=== PATIENT | female | born 1965 | race Caucasian/White ===

== ENCOUNTER 2020-04-10 22:16 | Emergency (ER) | payer BC, SELFPAY ==
--- NOTE | ~2020-04-10 | XR_ITS ---
EXAMINATION: XR chest 2V EXAM DATE: 04/10/2020 22:38 INDICATION: Left-sided chest pain radiating down left arm, symptoms 3 days. TECHNIQUE: Frontal and lateral projections of the chest obtained and reviewed. There is no prior teddy dy for comparison. FINDINGS: The lungs are clear. There are no pleural effusions. The cardiomediastinal silhouette is within normal limits. There is no pneumothorax suspected. The bones and soft tissues are unremarkab le. There are cholecystectomy clips. IMPRESSION: Unremarkable chest x-ray exam. Reviewed, dictated and finalized at location A. TRONIC ENGRAVER
--- NOTE | 2020-04-10 22:20 | ECG_ITS ---
Measurements Intervals [place] Rate: 94 P: 85 [place]: 160 QRS: 59 QRSD: 103 T: 62 QT: 346 QTc: 433 Interpretive Statements SINUS RHYTHM BORDERLINE ST ABNORMALITY- ANTEROLAT/INF LEADS BASELINE ARTIFACT- I, III, AVR, AVL, AVF BORDERLINE ECG Electronically Signed On 04-11-2020 7:38:20 RADIO PRESENTER by Regan Montalvo D.O.
[2020-04-10 22:21] VITALS: BP 148/101; PULSE 92; RESP 17; TEMP 36.7; O2SAT 100
[2020-04-10 22:43] LABS: Basophils Absolute Auto 0.1 K/mm3 (0.0-0.1); Basophils Percent Auto 0.6 % (0.2-1.2); Eosinophils Absolute Auto 0.1 K/mm3 (0-0.3); Eosinophils Percent Auto 1.3 % (0-4.4); Hematocrit 39.3 % (37.0-47.0); Hemoglobin 12.8 g/dL (12.0-15.0); Immature Granulocyte Absolute 0.03 K/mm3 (0.00-0.031); Immature Granulocyte Percent A 0.3 % (0-0.5); Lymphocytes Absolute Auto 3.65 K/mm3 (0.9-3.2); Lymphocytes Percent Auto 37.9 % (18.3-44.2); Mean Corpuscular HGB Conc 32.6 g/dl (32-36); Mean Corpuscular Hemoglobin 29.4 pg (26-34); Mean Corpuscular Volume 90.1 fl (80-100); Mean Platelet Volume 10.4 fl (7.4-10.4); Monocytes Absolute Auto 0.9 K/mm3 (0.1-0.6); Monocytes Percent Auto 8.9 % (2.6-8.5); Neutrophils Absolute Auto 4.9 K/mm3 (1.3-6.7); Platelet Count Result 273 k/mm3 (150-375); Red Blood Count 4.36 M/mm3 (4.2-5.4); Red Cell Distribution Width 12.3 % (11.5-14.5); White Blood Count 9.6 K/mm3 (4.5-10.0)
[2020-04-10 22:50] LABS: Prothrombin Time 13.9 Seconds (11.1-14.7)
[2020-04-10 22:51] LABS: Partial Thromboplastin Time 31.2 SECONDS (22.3-36.8)
[2020-04-10 22:52] LABS: Anion Gap 6 mmol/L (8-16); Blood Urea Nitrogen 20 mg/dL (7-17); Carbon Dioxide 25 mmol/L (22-30); Chloride 110 mmol/L (98-107); Estimated CRCL calculation 71 ml/min; Estimated Glomerular Filt Rate > 60; Glucose 93 mg/dL (65-105); Potassium 3.5 mmol/L (3.4-5.0); Sodium 141 mmol/L (137-145)
[2020-04-10 23:05] LABS: Troponin I < 0.012 ng/mL (0.000-0.034)
[2020-04-10 23:23] VITALS: BP 119/79; PULSE 81; RESP 18; O2SAT 99
[2020-04-10] MEDS: KETOROLAC 30 MG/ML VIAL (*BKC) IV PUSH (23:30)
[2020-04-10 23:35] LABS: D Dimer 0.28 ug/mL (<0.48)
[2020-04-11 00:17] VITALS: BP 121/68; PULSE 65; RESP 13; O2SAT 97
--- NOTE | 2020-04-11 00:36 | ED.CHESTPAIN ---
HPI - Chest Pain General Chief Complaint: Chest Pain Stated Complaint: chest pain Time Seen by Provider: 04/10/20 22:21 History of Present Illness HPI narrative: Patient is a healthy 54-year-old female who presents ER with chest pain. Left upper chest and in her left shoulder. Ongoing for last 3 days. Worse with physical movements of the arm. Also worsens with deep breath. No runny nose/sore throat/productive cough. No exertional chest pain or shortness of breath. No dizziness. No history of VA. Has not been taking pain medications and has not found alleviating factors. Related Data Allergies Allergy/AdvReac Type Severity Reaction Status Date / Time No Known Allergies Allergy Mild Verified 07/21/09 12:06 Review of Systems Review of Systems: All systems reviewed & are unremarkable except as noted in HPI and below Constitutional: Constitutional: Denies chills, Denies fever(s) and Denies weakness ENT: Denies nasal congestion and Denies sore throat Cardiovascular: Cardiovascular: Reports chest pain, Denies rapid heart rate and Denies radiating jaw, neck or arm pain Respiratory: Respiratory: Denies cough, Denies dyspnea and Denies wheezing Gastrointestinal: Gastrointestinal: Denies abdominal pain, Denies nausea and Denies vomiting Musculoskeletal: Musculoskeletal: Reports back pain, Reports myalgias and Denies muscle cramps PMFSH Past Medical History Medical History (Updated 04/11/20 @ 00:40 by Waldo Orr MD) Back pain with history of spinal surgery Healthy female adult Surgical History Surgical History (Updated 04/11/20 @ 00:38 by Waldo Orr MD) History of cholecystectomy History of hysterectomy History of neck surgery Social History Social History (Updated 04/11/20 @ 00:39 by Waldo Orr MD) Smoking status: Never smoker Exam Narrative: Exam Narrative: GENERAL: Well-appearing, well-nourished, and in no acute distress. HEAD: Normocephalic, atraumatic. ENT: Mucous membranes moist. CHEST: Clear to auscultation. No respiratory distress. Very tender to palpation to left upper anterior chest wall extending into the trapezius musculature. HEART: Regular rate and rhythm. Normal peripheral pulses. ABDOMEN: Soft, nontender, nondistended. EXTREMITIES: Normal range of motion. No edema. SKIN: Warm, dry, no rash. NEURO: Alert and oriented x3. PSYCH: Normal mood and affect. Course Course Emergency Course: Pain had been improving. Patient did receive Toradol here. Discussed lab results. Discharge home and follow-up with PCP. Vital Signs Vital signs: Vital Signs Temperature 98.0 F 04/10/20 22:21 Pulse Rate 92 04/10/20 22:21 Respiratory Rate 17 04/10/20 22:21 Blood Pressure 148/101 H 04/10/20 22:21 Pulse Oximetry 100 04/10/20 22:21 Temperature 98.0 F 04/10/20 22:21 Pulse Rate 65 04/11/20 00:17 Respiratory Rate 13 04/11/20 00:17 Blood Pressure 121/68 04/11/20 00:17 Pulse Oximetry 97 04/11/20 00:17 MDM - Chest Pain Lab Data Result diagrams: 04/10/20 22:27 04/10/20 22:27 Labs: Lab Results 04/10/20 04/10/20 04/10/20 Range/Units 22:27 22:27 22:27 WBC 9.6 (4.5-10.0) K/mm3 RBC 4.36 (4.2-5.4) M/mm3 Hgb 12.8 (12.0-15.0) g/dL Hct 39.3 (37.0-47.0) % MCV 90.1 (80-100) fl MCH 29.4 (26-34) pg MCHC 32.6 (32-36) g/dl RDW 12.3 (11.5-14.5) % Plt Count 273 (150-375) k/mm3 MPV 10.4 (7.4-10.4) fl Immature Gran % (Auto) 0.3 (0-0.5) % Neut % (Auto) 51.0 (45.5-73.1) % Lymph % (Auto) 37.9 (18.3-44.2) % [place] % (Auto) 8.9 H (2.6-8.5) % Eos % (Auto) 1.3 (0-4.4) % Baso % (Auto) 0.6 (0.2-1.2) % Lymph # (Auto) 3.65 H (0.9-3.2) K/mm3 [place] # (Auto) 0.9 H (0.1-0.6) K/mm3 Eos # (Auto) 0.1 (0-0.3) K/mm3 Baso # (Auto) 0.1 (0.0-0.1) K/mm3 Abs Immat Gran (auto) 0.03 (0.00-0.031) K/mm3 Absolute Neuts (auto) 4.9 (1.3-6.7) K/mm3
[2020-04-11 00:51] VITALS: BP 123/76; PULSE 64; RESP 12; O2SAT 99
== END 2020-04-11 00:53 | disposition home or self-care (01) ==
PROVIDERS: Emergency Provider Emergency Medicine; PCP Internal Medicine
DX: R07.89 Other chest pain (principal); R94.31 Abnormal electrocardiogram [ECG] [EKG]
CPT/HCPCS: 36415; 71046; 80048; 84484; 85025; 85380; 85610; 85730; 93005; 99284; J1885

== ENCOUNTER → 2020-06-03 14:31 | Outpatient (CLI) | payer BC, SELFPAY ==
--- NOTE | ~2020-06-03 | DEXA_ITS ---
Bone Density Report Name: Marylou King Age: 54 Sex: Female Ethnicity: White Date of : 1965 Indication: postmenopausal; screening for osteoporosis; hysterectomy; Referring Provider: CYNDEE BACA Study: Bone densitometry was performed. Exam Date: June 03, 2020 Accession number: [id number] Bone Density: Region BMD T-score Z-score Classification AP Spine (L1, L2, L3) 0.990 -0.3 0.7 Normal Femoral Neck (Left) 0.812 -0.3 0.6 Normal Total Hip (Left) 0.971 0.2 0.8 Normal Femoral Neck (Right) 0.834 -0.1 0.8 Normal Total Hip (Right) 0.989 0.4 1.0 Normal Total Hip Mean 0.980 0.3 0.9 Normal World Health Organization criteria for BMD impression classify patients as: Normal (T-score at or above -1.0), Osteopenia (T-score between -1.0 and -2.5), or Osteoporosis (T-score at or below -2.5). 10-year Fracture Risk: FRAX not reported because: All T-scores for Spine Total, Hip Total, Femoral Neck at or above -1.0 Clinical Information Provided by Patient: Has used the following medications: Vitamin D Has the following medical conditions: Hysterectomy Patient maximum height was 64 Menopause Age: 49 No regular weight bearing exercise Drinks caffeinated beverages Onset of menses at age 13 Number of children 3 Impression: The patient has normal bone mass. Discussion: BONE DENSITY IS ABOVE THE MINIMUM DESIRABLE LEVEL AT ALL SKELETAL SITES TESTED. This patient?s bone mineral density is above the minimum desirable level (T-score -1.0 or better) at all sites measured. The patient should follow a healthful lifestyle (good nutrition with adequate calcium and vitamin D, and appropriate weight-bearing exercise). Follow-Up: Consider repeating this study in 5 years or sooner if there is some new clinical indication. Reported by: JOAQUIN on 06/03/2020 3:21:00 PM. Reviewed, dictated and finalized at location ASkye MILLER
--- NOTE | ~2020-06-03 | MM_ITS ---
EXAMINATION: MM screening [facility] BI w sabiha HISTORY: Screening mammogram TECHNIQUE: Craniocaudal and mediolateral oblique 3-D tomosynthesis images were obtained and synthetic 2-D images were generated. CAD analysis was submitted and interpreted. COMPARISON: 04/23/2012 bilateral digital screening mammogram BREAST PARENCHYMAL COMPOSITION: The breasts are almost entirely fatty. FINDINGS: There is no evidence of suspicious mass, calcification, or architectural distortion to sugg est malignancy in either breast. There has been no suspicious interval change. IMPRESSION: 1. No mammographic evidence of malignancy. 2. Recommend routine screening mammography in one year. BI-RADS Category 1: Negative Reviewed, dictated and finalized at location A.
== END ==
PROVIDERS: PCP Internal Medicine; Visit Provider Obstetrics & Gynecology Gynecology
DX: Z12.31 Encounter for screening mammogram for malignant neoplasm of breast (principal); Z78.0 Asymptomatic menopausal state
CPT/HCPCS: 77063; 77067; 77080

== ENCOUNTER 2020-06-12 08:52 | Outpatient (CLI) | payer BC, SELFPAY ==
--- NOTE | ~2020-06-12 | MR_ITS ---
EXAMINATION: MR brain/brain stem wo/w con DATE: 06/12/2020 10:27 CDT INDICATION: Headache TECHNIQUE: Magnetic resonance imaging (MRI) of the brain and brainstem was performed without and with 15 cc MultiHance intravenous contrast. Sequences included sagittal and axial T1-weighted SE, axial d iffusion-weighted FS SE, axial T2*-weighted GRE, axial T2-weighted FLAIR Propeller, and axial T2-weig hted Propeller. Apparent diffusion coefficient (ADC) maps were created. COMPARISON: CT dated 07/21/2009 FINDINGS: The brain volume and ventricular system are within normal limits. The brain parenchymal si gnal intensity pattern and stuart/white matter is normal and there is no evidence of hemorrhage, space occupying masses or infarctions. The flow signal voids of the major arterial structures about the [place] and within the [place] r dural venous sinuses appear grossly unremarkable and patent. The seventh and eighth cranial nerve complexes are normal. The mid sagittal image demonstrates a normal craniovertebral junction and terrell us callosum. The paranasal sinuses are grossly unremarkable. There are a few scattered punctate area s of T2/FLAIR weighted signal hyperintensity in the deep white matter, within normal limits for age. No abnormal contrast enhancement was appreciated. IMPRESSION: 1: No significant intracranial abnormality. Reviewed, dictated and finalized at location A.
== END 2020-06-12 08:53 | disposition home or self-care (01) ==
LOC: CHSIMG 08:55
PROVIDERS: PCP Internal Medicine; Visit Provider Internal Medicine
DX: R51.9 Headache, unspecified (principal)
CPT/HCPCS: 70553; A9577

== ENCOUNTER 2021-05-26 00:28 | Day surgery (SDC) | payer BC, SELFPAY ==
[2021-05-17 11:22] VITALS: BMI 33.5
--- NOTE | 2021-05-25 14:46 | P.PNAN_ITS ---
Anes - Initial Pre Proc Eval Procedure: Operation Date: 05/26/21 08:30 Proposed Procedures p Screening Colonoscopy - Luis Lazo DO Date/Time: 05/25/21 14:46 Surgeon: Luis Lazo DO Pre Op Diagnosis: neoplasm screening Patient Data Age: 55 Gender: F Height: 1.6 m Weight: 86 kg Allergies Allergy/AdvReac Type Severity Reaction Status Date / Time No Known Allergies Allergy Mild Verified 05/26/21 07:41 Home Medications Medication Instructions Recorded Confirmed Type atorvastatin 20 mg PO HS 05/17/21 05/17/21 History bupropion HCl 300 mg PO HS 05/17/21 05/17/21 History duloxetine 120 mg PO HS 05/17/21 05/17/21 History rizatriptan 10 mg PO PRN PRN 05/17/21 05/17/21 History topiramate 200 mg PO HS 05/17/21 05/17/21 History Patient hx anesthesia problems: none Family hx anesthesia problems: none Results Review: All pre-operative results and documents have been reviewed as part of the pre-operative evaluation. [facility] Past Medical History Medical History (Updated 05/26/21 @ 08:54 by Luis Lazo DO) Anxiety Back pain with history of spinal surgery Depression Hyperlipidemia Surgical History Surgical History (Updated 04/11/20 @ 00:38 by Waldo Orr MD) History of cholecystectomy History of hysterectomy History of neck surgery Social History Social History (Updated 04/11/20 @ 00:39 by Waldo Orr MD) Smoking packs per day: 3 Smoking cigarettes per day: 60.0 Years smoked: 25 Smoking pack-years: 75.00 Smoking status: Former smoker Tobacco type: cigarettes Additional smoking assessment comments: BETWEEN 1-3 PKS/DAY Alcohol intake: never Substance use: never Substance use type: does not use Living arrangements: with family Spiritual care concerns: No Anes - Eval Final PreProcedure Day of Procedure 05/25/21 14:46 Patient weight: obese Heart: regular rate and rhythm Lungs: clear to auscultation and normal air movement Airway: Mallampati scale class II Neurological: alert and oriented Last oral intake: >/= 8 hours ASA classification: III Emergent: no Anesthetic plan: proceed Anesthesia type and monitoring: general GIVS and standard monitoring Results Review: All pre-operative results and documents have been reviewed as part of the pre-operative evaluation. Informed Consent: The patient's anesthetic plan and its attendant risks and benefits were discussed with the patient/family/POA. Questions were solicited and answers provided to the satisfaction of the patient/family/POA.
[2021-05-26 07:44] VITALS: BP 122/99; PULSE 110; RESP 18; TEMP 36.3; O2SAT 100
[2021-05-26] MEDS: LACTATED RINGERS 1,000 ML 150 ML IV CONT (07:54)
--- NOTE | 2021-05-26 08:53 | PM.IMHP ---
H&P: HPI History of Present Illness Date/Time: 05/26/21 08:53 Chief Complaint: screening for colorectal cancer Narrative: this is a 55-year-old woman who presents for colonoscopy. She has never had a colonoscopy before. She denies any blood in her stool. She denies any family history of colon cancer. Review of Systems Review of Systems: All systems reviewed & are unremarkable except as noted in HPI and below Constitutional: Constitutional: Denies chills, Denies fever(s), Denies headache(s) and Denies weight loss Eyes: Eyes: Denies change in vision ENT: Denies dizziness, Denies headache(s), Denies neck mass and Denies throat swelling Cardiovascular: Cardiovascular: Denies chest pain, Denies lightheadedness and Denies dyspnea Respiratory: Respiratory: Denies cough, Denies dyspnea and Denies wheezing Gastrointestinal: Gastrointestinal: Denies abdominal pain, Denies change in bowel habits, Denies nausea and Denies vomiting Genitourinary: Genitourinary: Denies hematuria and Denies dysuria Musculoskeletal: Musculoskeletal: Reports as per HPI Integumentary/Breasts: Skin/Breast: Reports as per HPI Neurologic: Denies dizziness and Denies headache(s) Allergic/Immunologic: Allergic/Immunologic: Denies throat swelling and Denies wheezing [facility] Past Medical History Medical History (Updated 05/26/21 @ 08:54 by Luis Lazo DO) Anxiety Back pain with history of spinal surgery Depression Hyperlipidemia Surgical History Surgical History (Updated 04/11/20 @ 00:38 by Waldo Orr MD) History of cholecystectomy History of hysterectomy History of neck surgery Social History Social History (Updated 04/11/20 @ 00:39 by Waldo rOr MD) Smoking packs per day: 3 Smoking cigarettes per day: 60.0 Years smoked: 25 Smoking pack-years: 75.00 Smoking status: Former smoker Tobacco type: cigarettes Additional smoking assessment comments: BETWEEN 1-3 PKS/DAY Alcohol intake: never Substance use: never Substance use type: does not use Living arrangements: with family Spiritual care concerns: No Meds Home Medications and Allergies Home Medications Medication Instructions Recorded Confirmed Type atorvastatin 20 mg PO HS 05/17/21 05/17/21 History bupropion HCl 300 mg PO HS 05/17/21 05/17/21 History duloxetine 120 mg PO HS 05/17/21 05/17/21 History rizatriptan 10 mg PO PRN PRN 05/17/21 05/17/21 History topiramate 200 mg PO HS 05/17/21 05/17/21 History Allergies Allergy/AdvReac Type Severity Reaction Status Date / Time No Known Allergies Allergy Mild Verified 05/26/21 07:41 Vital Signs Vital Signs - 24 hr 05/26/21 07:44 Temperature 36.3 C L Pulse Rate 110 H Respiratory Rate 18 Blood Pressure 122/99 H Pulse Oximetry 100 Exam Const: General: no acute distress and alert Orientation/consciousness: patient oriented x3 HENMT: Head: normocephalic and atraumatic Ears: hearing grossly normal bilaterally General nose exam: Normal nares present Mouth: Yes Normal oral and palatal mucosa present Eyes: Periorbital: periorbital findings normal Sclera: sclerae normal EOM: EOMs intact bilaterally Neck: Neck: normal visual inspection, no lymphadenopathy and trachea midline Chest: Chest palpation & inspection: normal inspection of the chest Resp: Effort & Inspection: normal respiratory effort Auscultation: clear to auscultation bilaterally Cardio: Jugular venous distension: no JVD Rate: regular rate Rhythm: regular rhythm Heart sounds: S1 normal heart sound present and S2 normal heart sound present Peripheral pulses: Peripheral pulses 2+ throughout GI: Inspection: normal to inspection GI Palp: Yes Soft to palpation, No Tenderness to palpation present (GI), No Guarding due to palpation present (GI) and No Rebound tenderness present Percussion: Yes normal to percussion Auscultation: normal bowel sounds : General: Yes no CVA tenderness Back/Spine/Pelvis:
[2021-05-26 09:29] VITALS: BP 124/102; PULSE 94; RESP 20; O2SAT 100
[2021-05-26 09:39] VITALS: BP 108/68; PULSE 84; RESP 18; O2SAT 100
[2021-05-26 09:49] VITALS: BP 120/77; PULSE 78; RESP 20; O2SAT 99
== END 2021-05-26 10:00 | disposition home or self-care (01) ==
PROVIDERS: PCP Internal Medicine; Visit Provider Surgery
PROC: 0DJD8ZZ Inspection of Lower Intestinal Tract, Via Natural or Artificial Opening Endoscopic (ICD-10-PCS; CPT 45378; principal; 2021-05-26 08:30)
DX: Z12.11 Encounter for screening for malignant neoplasm of colon (principal); K64.8 Other hemorrhoids; E78.5 Hyperlipidemia, unspecified; F41.8 Other specified anxiety disorders; Z87.891 Personal history of nicotine dependence; E66.9 Obesity, unspecified; Z68.33 Body mass index [BMI] 33.0-33.9, adult
CPT/HCPCS: 45378; J2704; J7120

== ENCOUNTER 2023-04-05 08:19 | Outpatient (CLI) | payer BC, SELFPAY ==
--- NOTE | ~2023-04-05 | MR_ITS ---
EXAMINATION: MR brain/brain stem wo/w con DATE: 04/05/2023 09:20 INDICATION: Headache with amnesia. TECHNIQUE: Magnetic resonance imaging (MRI) of the brain and brainstem was performed without and with 18 mL MultiHance intravenous contrast. COMPARISON: Brain MRI 06/12/2020 FINDINGS: There are 2 foci of increased T2-weighted signal intensity in the cerebral white matter, wh ich is normal for the patient's age. There is no intracranial hemorrhage, acute infarction, or abnorm al intracranial mass lesion. The ventricles are normal in size. The orbits are normal. The paranasal sinuses are clear. The mastoid air cells are normal. IMPRESSION: 1. Normal aging brain. Reviewed, dictated and finalized at location A. ER LAPPER IMPRESSION: 1. Normal aging brain.
== END 2023-04-05 08:20 | disposition home or self-care (01) ==
LOC: CHSIMG 08:21
PROVIDERS: PCP Internal Medicine; Visit Provider Internal Medicine
DX: R51.9 Headache, unspecified (principal); R41.3 Other amnesia
CPT/HCPCS: 70553; A9577

== ENCOUNTER 2024-12-11 13:47 | Outpatient (CLI) | payer BC, SELFPAY ==
--- NOTE | ~2024-12-11 | MM_ITS ---
EXAMINATION: MM screening [facility] BI w sabiha HISTORY: Screening TECHNIQUE: Craniocaudal and mediolateral oblique 3-D tomosynthesis images were obtained and synthetic 2-D images were generated. CAD analysis was submitted and interpreted. COMPARISON: Comparison to multiple prior studies sequentially, with oldest reviewed study dated 06/03/2020. BREAST PARENCHYMAL COMPOSITION: Not dense: There are scattered areas of fibroglandular density. FINDINGS: There is no evidence of suspicious mass, calcification, or architectural distortion to suggest malignancy in either breast. There has been no suspicious interval change. IMPRESSION: 1. No mammographic evidence of malignancy. 2. Recommend routine screening mammography in one year. BI-RADS Category 1: Negative Reviewed, dictated and finalized at location O. BINDING FOLDER
--- NOTE | ~2024-12-11 | DEXA_ITS ---
Bone Density Report Name: CARMITA CLINTON Age: 58 Sex: Female Ethnicity: White Date of : 1965 Indication: postmenopausal; screening for osteoporosis; hysterectomy; Referring Provider: CYNDEE BACA Study: Bone densitometry was performed. Exam Date: December 11, 2024 Accession number: [id number] Bone Density: Region BMD T-score Z-score Classification AP Spine(L1, L2, L3) 1.021 0.0 1.3 Normal Femoral Neck (Left) 0.797 -0.5 0.7 Normal Total Hip (Left) 0.968 0.2 1.0 Normal Femoral Neck (Right) 0.760 -0.8 0.4 Normal Total Hip (Right) 0.947 0.0 0.9 Normal Total Hip Mean 0.957 0.1 1.0 Normal World Health Organization criteria for BMD impression classify patients as: Normal (T-score at or above -1.0), Osteopenia (T-score between -1.0 and -2.5), or Osteoporosis (T-score at or below -2.5). 10-year Fracture Risk: FRAX not reported because: All T-scores for Spine Total, Hip Total, Femoral Neck at or above -1.0 Previous Exams: -- Region Exam Age BMD T-score BMD Change BMD Change Date g/cm2 vs Baseline vs Previous -- AP Spine (L1-L3) 12/11/2024 58 1.021 0.0 3.1%# 3.1%# 06/03/2020 54 0.990 -0.3 Total Hip(Left) 12/11/2024 58 0.968 0.2 -0.3% -0.3% 06/03/2020 54 0.971 0.2 Total Hip(Right) 12/11/2024 58 0.947 0.0 -4.2%* -4.2%* 06/03/2020 54 0.989 0.4 -- *Denotes significance at 95% confidence level, LSC for AP Spine = 0.022 g/cm2, LSC for Total Hip = 0.027 g/cm2 # Denotes dissimilar scan types or analysis methods Clinical Information Provided by Patient: Has used the following medications: Vitamin D Has the following medical conditions: Hysterectomy Patient maximum height was 64 Menopause Age: 25 No regular weight bearing exercise Drinks caffeinated beverages Onset of menses at age 13 Number of children 3 Impression: The patient has normal bone mass. The BMD for the Total Hip(Right) decreased, changing by -4.2% since the last DXA exam. Discussion: BONE DENSITY IS ABOVE THE MINIMUM DESIRABLE LEVEL AT ALL SKELETAL SITES TESTED. This patient?s bone mineral density is above the minimum desirable level (T-score -1.0 or better) at all sites measured. The patient should follow a healthful lifestyle (good nutrition with adequate calcium and vitamin D, and appropriate weight-bearing exercise). Follow-Up: Consider repeating this study in 3 to 4 years to reassess this patient's status, or sooner if there is some new clinical indication. Reported by: HELEN on 12/11/2024 2:21:00 PM. Reviewed, dictated and finalized at location A.
== END 2024-12-11 13:48 | disposition home or self-care (01) ==
PROVIDERS: PCP Internal Medicine; Visit Provider Obstetrics & Gynecology Gynecology
DX: Z12.31 Encounter for screening mammogram for malignant neoplasm of breast (principal); Z13.820 Encounter for screening for osteoporosis; Z78.0 Asymptomatic menopausal state
CPT/HCPCS: 77063; 77067; 77080